=== PATIENT | female | born 1990 | race Hispanic/Latino ===

== ENCOUNTER 2025-04-03 18:19 | Emergency (ER) | payer SELFPAY ==
[~2025-04-03] VITALS: Ht 167.6 cm; Wt 108.0 kg
[2025-04-03 19:00] VITALS: BP 142/82; PULSE 66; RESP 16; TEMP 97.9; O2SAT 100
[2025-04-03] MEDS ORDERED: METH-811 PO (20:53)
--- NOTE | 2025-04-03 20:56 | ERN ---
General Chief Complaint: Back Pain-No Injury Stated Complaint: BACK PAIN Time Seen by MD: 18:36 Time Seen by Midlevel: 18:36 Source: patient History of Present Illness Initial Comments 34-year-old female who presents to the emergency department due to left-sided neck, shoulder pain. Denies any injuries or further associated symptoms. The patient reports she woke up from a nap and initiated feeling the pain. Denies significant past medical history. Allergies: Coded Allergies: No Known Drug Allergies (Unverified Allergy, Unknown, 04/03/25) Past Medical History Past Medical History: Other Medical History Other: prediabetic Past Surgical History: Appendectomy ROS Dictation Constitutional: Negative for fever,chills, and weight loss Eyes: Negative for injury, pain,redness, and discharge ENT: Negative for injury,pain or swelling Cardiovascular: Negative for chest pain, palpitations, and edema Respiratory: Negative for shortness of breath, cough, and wheezing, Abdomen/GI: Negative for abdominal pain, nausea, vomiting, diarrhea, and constipation Back: Negative for injury and pain : Negative for painful urination, bleeding or discharge MS/Extremity: Positive for left shoulder, left neck pain Negative for injury and deformity Skin: Negative for rash, and discoloration Neuro: Negative for headache, weakness, numbness, tingling, and seizure Psych: Negative for suicide ideation, homicidal ideation, and hallucinations Physical Exam Physical Exam Dictation General: awake, alert, no acute distress Head/Face: Normocephalic, atraumatic Eyes: PERRL, EOMI, normal conjuctiva ENT: oral cavity clear, oral mucosa moist Neck: Supple, normal range of motion Cardiovascular: RRR, normal S1/S2 Skin: Warm, dry, normal turgor, no rash MS/Extremity: Pulses equal, no cyanosis, neurovascular intact, FROM. Mild tenderness to the left trapezius Neuro: COAx4, GCS 15, strength 5/5, CN 2-12 intact, normal cerebellar exam, normal gait Psych: Normal behavior, mood, and affect normal MDM MDM: Differential diagnosis: Fracture, sprain, strain, muscle spasm Rationale: 34-year-old female who presents to the emergency department due to left-sided neck, shoulder pain. Denies any injuries or further associated symptoms. The patient reports she woke up from a nap and initiated feeling the pain. Denies significant past medical history. Per physical examination patient has normal range of motion of the left upper extremity and normal range of motion of the neck, mild tenderness in the left trapezius area. X-rays obtained with no indications of fractures or dislocations. Patient received methocarbamol and ketorolac in the ED. She was educated on findings and diagnosis. Advised to follow up with PCP. Return to the emergency department for any worsening symptoms. Patient verbalized understanding. Patient stable for discharge. There are no social concerns with this patient. I independently interpreted the test that were performed, results were reviewed by me and considered findings on radiology if ordered. Medical management and examination interpretation discussions were had by me with other qualified healthcare professionals as indicated for the patient's care. ED Course Orders Procedure Category Date Status Time Cerv Spine 4-5 Vws RAD 04/03/25 Taken 18:57 Methocarbamol PHA 04/03/25 Complete (Methocarbamol) 18:58 Ketorolac PHA 04/03/25 Complete Tromethamine 15mg/Ml 19:00 Current Medications Medications (Trade) Dose Ordered Sig/Jose Route PRN Reason Start Time Stop Time Status Last Admin Dose Admin Ketorolac Tromethamine (toRADol) 15 mg ONCE ONCE IM 04/03/25 19:00 04/03/25 19:03 DC 04/03/25 19:22 Methocarbamol (methoCARBamol) 1,000 mg ONCE STAT PO 04/03/25 18:58 04/03/25 19:03 DC 04/03/25 19:22 Vital Signs Date Time Temp Pulse Resp B/P (MAP) Pulse Ox O2 Delivery O2 Flow Rate FiO2 04/03/25 19:00 97.9 66 16 142/82 100 Room Air* 0 21 04/03/25 18:26 97.9 71 16 135/76 99 Room Air* 0 21 04/03/25 18:21 97.9 71 16 135/76 99 0 DX & DISP Disposition: Discharge Departure Impression: Primary Impression: Muscle spasms of neck Condition: Stable Scripts Methocarbamol (Methocarbamol) 500 Mg Tablet 2 TAB PO TID for 5 Days, #30 TAB 0 Refills Prov: AIDEN QUILES PAC 04/03/25 Additional Instructions: Discharge home. Rest. Follow up with primary care in 24 hours. Return to the ER for any acute changes or worsening symptoms. If any medications were prescribed take as directed. Okay to continue home medications unless otherwise discussed during your visit in the emergency room today. Patient was also advised to follow-up with primary care physician in 1 to 2 days for continued monitoring. Referrals: SELF,REFERRAL (PCP) I performed the substantive portion of the visit. I have reviewed and personally made and approve the management plan that is documented in the notes by myself or the ADDIE. I acknowledge full responsibility for the patient's management plan. AIDEN QUILES PAC Apr 03, 2025 20:56
--- NOTE | 2025-04-03 21:11 | HMCIMG ---
EXAM: CR Cervical spine, 5 views. CLINICAL HISTORY: Left neck pain. COMPARISON: None provided. FINDINGS: Mild straightening of the expected cervical lordosis reflects paraspinal muscle spasm. No spondylolisthesis on flexion or extension. Normal intervertebral disc spaces. Normal vertebral body heights. No acute fracture. The prevertebral soft tissues are within normal limits. The included lungs are clear. IMPRESSION: No acute fracture. Mild straightening of the expected cervical lordosis reflects paraspinal muscle spasm. No spondylolisthesis on flexion or extension. /[place]
== END 2025-04-03 21:12 | disposition home or self-care (01) ==
LOC: EDH 18:19
DX: M62.838 Other muscle spasm (principal); M54.2 Cervicalgia; M25.512 Pain in left shoulder; Z90.49 Acquired absence of other specified parts of digestive tract
CPT/HCPCS: 99283; 72050; 96372; J1885